=== PATIENT | female | born 1995 | race Caucasian/White ===

== ENCOUNTER 2022-02-12 15:04 | Observation (INO) | payer BC ==
[~2022-02-12] VITALS: Ht 177.8 cm; Wt 125.6 kg
[2022-02-12] MEDS: DEXTROSE 5%/0.9% SOD CHL 1,000 ML IV SCH (02:00)
[2022-02-12] MEDS ORDERED: DICYCLOMINE HCL 20 MG TAB PO ONE (15:30)
[2022-02-12] MEDS ORDERED: ONDANSETRON HCL INJ 2MG/ML 2ML 2 MG/ML VIAL IV PRN ×3 (15:30→19:00)
[2022-02-12 15:51] LABS: BASOPHILS # (AUTO) 0.1 (0.0-0.1); BASOPHILS % 0.7 % (0.0-1.0); EOSINOPHILS # (AUTO) 0.1 (0.0-0.4); EOSINOPHILS % 0.9 % (0.0-6.0); HEMATOCRIT 49.1 % (34.2-44.1); HEMOGLOBIN 15.8 g/dL (12.0-16.0); LYMPHOCYTES # (AUTO) 3.9 (1.0-3.2); LYMPHOCYTES % 35.9 % (18.0-39.1); MEAN CORPUSCULAR HEMOGLOBIN 29.7 pg (28-32); MEAN CORPUSCULAR HGB CONC 32.2 g/dL (31-35); MEAN CORPUSCULAR VOLUME 92.3 fL (81-99); MONOCYTES # (AUTO) 0.6 (0.2-0.8); MONOCYTES % 5.1 % (4.4-11.3); NEUTROPHILS # (AUTO) 6.1 (2.1-6.9); NEUTROPHILS % 57.2 % (38.7-80.0); PLATELET COUNT 312 x10e3/uL (140-360); RED BLOOD COUNT 5.32 x10e6/uL (3.6-5.1); RED CELL DISTRIBUTION WIDTH 12.8 % (11.7-14.4)
[2022-02-12 16:11] LABS: ALBUMIN 4.8 g/dL (3.5-5.0); ALBUMIN/GLOBULIN RATIO 1.4 (0.8-2.0); ANION GAP 19.4 mmol/L (8-16); CALCIUM 10.4 mg/dL (8.4-10.2); CREATININE, SERUM 0.87 mg/dL (0.57-1.11); POTASSIUM 3.4 mmol/L (3.5-5.1)
[2022-02-12 16:15] LABS: CLARITY,URINE SL CLOUDY (CLEAR); COLOR,URINE STRAW (YELLOW); KETONES,URINE TRACE (NEGATIVE); LEUKOCYTE ESTERASE ,URINE MODERATE (NEGATIVE); LIPASE 25 U/L (8-78); NITRITE,URINE NEGATIVE (NEGATIVE); PROTEIN,URINE DIPSTICK TRACE (NEGATIVE); URINE UROBILINOGEN 0.2 mg/dL (0.2 - 1)
[2022-02-12 16:27] LABS: BACTERIA,URINE MODERATE /HPF; EPITHELIAL CELLS,URINE MANY /LPF
[2022-02-12] MEDS ORDERED: Morphine 4mg INJECTION 4 MG/ML INJ IV PRN (19:00)
[2022-02-12] MEDS ORDERED: HYDROCODONE/APAP 10MG-325MG TAB PO STA (20:59)
[2022-02-12] MEDS ORDERED: HYDROCODONE/APAP 10MG-325MG TAB PO ONE (21:15)
[2022-02-12 21:26] VITALS: BP 113/77
[2022-02-12 21:36] VITALS: BP 113/77
[2022-02-12] MEDS ORDERED: DEXTROSE 50% SYRINGE 50 ML IV PRN (22:45)
[2022-02-12] MEDS ORDERED: HYDROCODONE/APAP 5MG-325MG TAB PO PRN (22:45)
[2022-02-12] MEDS ORDERED: HYDRALAZINE HCL 20 MG/ML VIAL IV PRN (22:45)
[2022-02-12] MEDS ORDERED: ALBUTEROL/IPRATROPIUM 3 ML NEB NEB PRN (22:45)
[2022-02-12] MEDS ORDERED: LIDOCAINE 4% PATCH TP PRN (22:45)
[2022-02-12] MEDS ORDERED: ACETAMINOPHEN 325 MG TAB PO PRN (22:45)
[2022-02-12] MEDS ORDERED: BENZONATATE 100 MG CAP PO PRN (22:45)
[2022-02-12] MEDS ORDERED: MELATONIN 5 MG TABLET PO PRN (22:45)
[2022-02-12] MEDS ORDERED: DIPHENHYDRAMINE HCL 25 MG CAP PO PRN (22:45)
[2022-02-12] MEDS ORDERED: POTASSIUM CHLORIDE 20 MEQ TAB CR PO PRN (22:45)
[2022-02-12] MEDS ORDERED: DOCUSATE SODIUM 100 MG CAP PO PRN (22:45)
[2022-02-12] MEDS ORDERED: Morphine 2mg Syringe 2 MG/ML SYR IV PRN (23:00)
[2022-02-12 23:15] VITALS: BP 113/77
[2022-02-13] VITALS (8 sets, daily range): BP systolic 105–117; BP diastolic 52–74
[2022-02-13] MEDS ORDERED: SODIUM CHLORIDE 0.9% 1000ML 1,000 ML IV SCH
[2022-02-13 04:54] LABS: BASOPHILS # (AUTO) 0.1 (0.0-0.1); BASOPHILS % 0.7 % (0.0-1.0); EOSINOPHILS # (AUTO) 0.2 (0.0-0.4); EOSINOPHILS % 1.7 % (0.0-6.0); HEMATOCRIT 45.2 % (34.2-44.1); HEMOGLOBIN 14.6 g/dL (12.0-16.0); LYMPHOCYTES # (AUTO) 4.2 (1.0-3.2); MEAN CORPUSCULAR HEMOGLOBIN 30.3 pg (28-32); MEAN CORPUSCULAR HGB CONC 32.3 g/dL (31-35); MEAN CORPUSCULAR VOLUME 93.8 fL (81-99); MONOCYTES # (AUTO) 0.7 (0.2-0.8); MONOCYTES % 6.8 % (4.4-11.3); NEUTROPHILS # (AUTO) 5.3 (2.1-6.9); NEUTROPHILS % 50.4 % (38.7-80.0); PLATELET COUNT 215 x10e3/uL (140-360); RED BLOOD COUNT 4.82 x10e6/uL (3.6-5.1); RED CELL DISTRIBUTION WIDTH 13.1 % (11.7-14.4)
[2022-02-13 05:19] LABS: ANION GAP 15.5 mmol/L (8-16); CALCIUM 8.4 mg/dL (8.4-10.2); CREATININE, SERUM 0.76 mg/dL (0.57-1.11); POTASSIUM 3.5 mmol/L (3.5-5.1)
[2022-02-13] MEDS: PANTOPRAZOLE SOD 40 MG TABEC PO SCH (07:30)
[2022-02-13] MEDS: KETOROLAC TROMETHAMINE 30 MG/ML VIAL IV PRN ×2 (08:47→17:27)
[2022-02-13] MEDS: DEXTROSE 5%/0.9% SOD CHL 1,000 ML IV SCH ×2 (08:48→16:09)
[2022-02-13] MEDS: ONDANSETRON HCL INJ 2MG/ML 2ML 2 MG/ML VIAL IV PRN (12:47)
[2022-02-14] VITALS: BP 98/57
[2022-02-14] MEDS: DEXTROSE 5%/0.9% SOD CHL 1,000 ML IV SCH ×2 (00:34→08:49)
[2022-02-14] MEDS: ONDANSETRON HCL INJ 2MG/ML 2ML 2 MG/ML VIAL IV PRN (02:18)
[2022-02-14] MEDS: KETOROLAC TROMETHAMINE 30 MG/ML VIAL IV PRN ×4 (02:19→21:03)
[2022-02-14] MEDS: PANTOPRAZOLE SOD 40 MG TABEC PO SCH ×2 (07:30→14:39)
[2022-02-14 08:00] VITALS: BP 100/52
[2022-02-14 08:02] VITALS: BP 100/52
[2022-02-14 11:03] VITALS: BP 128/75
[2022-02-14] MEDS ORDERED: BUPIVACAINE 0.5%/EPI 30 ML SDV INJ ONE (13:01)
[2022-02-14] MEDS ORDERED: HYDROCODONE/APAP 7.5MG-325MG 1 EA TAB PO PRN (13:45)
[2022-02-14] MEDS ORDERED: HYDROMORPHONE 1MG/1ML INJ IV PRN (13:45)
[2022-02-14] MEDS ORDERED: ACETAMINOPHEN 1000 MG/100 ML 0 ML IV ONE (14:04)
[2022-02-14] MEDS ORDERED: KETOROLAC TROMETHAMINE 30 MG/ML VIAL ONE (14:04)
[2022-02-14] MEDS ORDERED: ACETAMINOPHEN 1000 MG/100 ML 100 ML IV ONE (14:05)
[2022-02-14 15:33] VITALS: BP 108/71
[2022-02-14] MEDS ORDERED: VERAPAMIL HCL 2.5 MG/ML 2 ML VIAL ONE (17:43)
[2022-02-14] MEDS ORDERED: FENTANYL CITRATE/PF 100MCG/2 ML INJ ONE (17:43)
[2022-02-14] MEDS ORDERED: LIDOCAINE HCL 2% LOCAL INJ 5 ML SDV VIAL INJ ONE (18:18)
[2022-02-14] MEDS ORDERED: PROPOFOL IV EMULSION 10 MG/ML 20 ML VIAL ONE (18:18)
[2022-02-14] MEDS ORDERED: ONDANSETRON HCL INJ 2MG/ML 2ML 2 MG/ML VIAL ONE (18:18)
[2022-02-14] MEDS ORDERED: NEOSTIGMINE 1 MG/ML 10ML VIAL ONE (18:18)
[2022-02-14] MEDS ORDERED: POVIDONE IODINE 0.05% 0.05 % ML PO ONE (18:18)
[2022-02-14] MEDS ORDERED: SEVOFLURANE INHAL SOLN 250 ML PEN BTL ONE (18:18)
[2022-02-14] MEDS ORDERED: DEXAMETHASONE SOD PHOS INJ 4 MG/ML SDV ONE (18:18)
[2022-02-14] MEDS ORDERED: GLYCOPYRROLATE INJ 0.2 MG/ML VIAL ONE (18:18)
[2022-02-14] MEDS ORDERED: ROCURONIUM BROMIDE 10 MG/ML 5ML VIAL IV ONE (18:18)
[2022-02-14 20:00] VITALS: BP 110/64
[2022-02-15] VITALS: BP 98/55
[2022-02-15 04:00] VITALS: BP 93/49
[2022-02-15 04:56] LABS: HEMATOCRIT 43.8 % (34.2-44.1); HEMOGLOBIN 13.9 g/dL (12.0-16.0)
[2022-02-15 05:11] LABS: ANION GAP 16.7 mmol/L (8-16); BLOOD UREA NITROGEN < 5 mg/dL (7-26); CALCIUM 9.4 mg/dL (8.4-10.2); CARBON DIOXIDE 20 mmol/L (22-29); CHLORIDE 109 mmol/L (98-107); CREATININE, SERUM 0.78 mg/dL (0.57-1.11); GLUCOSE 94 mg/dL (74-118); POTASSIUM 3.7 mmol/L (3.5-5.1); SODIUM 142 mmol/L (136-145)
[2022-02-15 05:23] LABS: BUN/CREATININE RATIO 6 (6-25)
[2022-02-15] MEDS: PANTOPRAZOLE SOD 40 MG TABEC PO SCH (08:19)
[2022-02-15 08:26] VITALS: BP 99/49
[2022-02-15 09:24] VITALS: BP 99/49
[2022-02-15 11:32] VITALS: BP 101/68
[2022-02-15 15:12] VITALS: BP 110/64
== END 2022-02-15 18:00 | disposition home or self-care (01) ==
LOC: ER 15:18 → ERHOLD 19:00 → INTOOBSV 19:00 → ERHOLD 20:06 → MED/SURG 21:21
PROVIDERS: ADMIT Internal Medicine; ATTEND Internal Medicine
DX: K80.12 Calculus of gallbladder with acute and chronic cholecystitis without obstruction (principal); K76.0 Fatty (change of) liver, not elsewhere classified; E66.01 Morbid (severe) obesity due to excess calories; Z68.39 Body mass index [BMI] 39.0-39.9, adult; Z20.822 Contact with and (suspected) exposure to COVID-19
CPT/HCPCS: 0223U; 36415 ×3; 47562; 76705; 80048 ×2; 80053; 81001; 83690; 83735; 84702; 85014; 85018; 85025 ×2; 88304; 94799; 99284; C1766; G0378 ×4; J0131; J1100; J1885 ×2; J2001; J2270; J2405 ×3; J2543 ×4; J2704; J2710; J3010; J7030; J7042 ×2; S0164 ×2